=== PATIENT | female | born 1950 | race African-American/Black ===

== ENCOUNTER 2019-06-04 10:41 | Inpatient (IN) | payer BC, OTHER ==
[~2019-06-04] VITALS: Ht 162.6 cm; Wt 49.9 kg
--- NOTE | 2019-06-04 11:05 | NUR ---
PT CAME IN FOR MEDICAL CLEARANCE ACCOPANIED BY SINGLE RESOURCE BOSS Patient is AOx4, speaking in complete sentences, speech is clear. Patient is able to follow /comprehend directions. Gait is stable. No cardiovascular distress noted. Rate and rhythm are regular. No CP. No respiratory distress noted. Respirations even & unlabored with symmetrical chest rise. No adventitious sounds noted. Patient denies Fever/Chills. No recent travel.KNOWN HX OF HTN, upon arrival bp at 200/91mmhg, pt states she has not taken her BP meds (cozaar) this morning otherwise, presenting with no other related symptoms Pt c/o b/l knee pain for 1week, denies trauma to the site Addendum: 06/04/19 at 1141 by Binary ThumbIL Patient is AOx2(name and location), speaking in complete sentences, speech is clear. Patient is able to follow /comprehend directions. compliant and pleasant, pt stating different birthday states "channel cementer outsole machine will come and notify that i am born 03/10/1947" denies agitation, denies si/hi concerns at this time. Phas hx of paranoia and refuses to go home due to fear of being hurt by others Gait is stable. No cardiovascular distress noted. Rate and rhythm are regular. No CP. No respiratory distress noted. Respirations even & unlabored with symmetrical chest rise. No adventitious sounds noted. reoriented, pt easily redirected pt is calm, compliant, kept comfortable
--- NOTE | 2019-06-04 11:12 | NUR ---
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
[2019-06-04 11:50] LABS: BASOPHILS % (AUTO) 0.7 % (0.0-2.0); EOSINOPHILS % (AUTO) 0.4 % (0.0-7.0); HEMATOCRIT 33.4 % (31.2-41.9); HEMOGLOBIN 11.1 g/dL (10.9-14.3); LYMPHOCYTES # (AUTO) 0.8 K/uL (20.0-40.0); MEAN CORPUSCULAR HEMOGLOBIN 30.6 uug (24.7-32.8); MEAN CORPUSCULAR HGB CONC 33 g/dL (32.3-35.6); MEAN CORPUSCULAR VOLUME 91.9 fL (75.5-95.3); MONOCYTES # (AUTO) 0.3 K/uL (2.0-10.0); MONOCYTES % (AUTO) 6.3 % (0.0-11.0); NEUTROPHILS # (AUTO) 3.3 K/uL (1.8-8.9); NEUTROPHILS % (AUTO) 74.6 % (38.5-71.5); PLATELET COUNT (AUTO) 170 K/uL (179-408); RED BLOOD CELL COUNT(AUTO) 3.63 MIL/uL (3.63-4.92); WHITE BLOOD COUNT (AUTO) 4.5 K/uL (3.8-11.8)
[2019-06-04 12:02] LABS: CARBON DIOXIDE 30 mmol/L (21-32); CHLORIDE 107 mmol/L (98-107); CREATININE 1.4 mg/dL (0.6-1.3); GLUCOSE 78 mg/dL (74-106); POTASSIUM 3.4 mmol/L (3.5-5.1); UREA NITROGEN, BLOOD 32 mg/dL (7-18)
[2019-06-04 12:03] LABS: ALANINE AMINOTRANSFERASE 20 U/L (14-59); ALKALINE PHOSPHATASE 50 U/L (50-136); ASPARTATE AMINOTRANSFERASE 21 U/L (15-37); BILIRUBIN,DIRECT 0.1 mg/dL (0.0-0.2); BILIRUBIN,TOTAL 0.3 mg/dL (0.2-1.0); TOTAL PROTEIN, SERUM 7.7 g/dL (6.4-8.2)
[2019-06-04 12:10] LABS: ETHANOL < 3 MG/DL (0-0)
[2019-06-04 12:11] LABS: THYROID STIMULATING HORMONE 1.849 mIU/mL (0.358-3.740)
--- NOTE | 2019-06-04 12:22 | NUR ---
PT HOLD SIGNED BY HOUSEHOLD APPLIANCE MECHANIC: PT IS DANGER TO SELF W/ GD UNDER PSYCH: DR HUGHES CALL FOR BED DONE RM 327 (DEDE) [id number] AT BEDSIDE PT CURRENTLY DENIES SI/HI STILL WITH EPISODES OF CONFUSION KEPT CALM AND COMPLIANT
[2019-06-04 12:47] LABS: *BILIRUBIN,URIN NEGATIVE (NEGATIVE); *CLARITY,URINE SLIGHTLY CLOUDY (CLEAR); *COLOR,URINE LIGHT YELLOW (YELLOW); *KETONES,URINE NEGATIVE (NEGATIVE); *UROBILINOGEN,URINE 0.2 E.U./dl (NORMAL); LEUKOCYTE ESTERASE ,URINE 1+ (NEGATIVE); NITRITE, URINE NEGATIVE (NEGATIVE); UGLUCOSE NEGATIVE (NEGATIVE)
[2019-06-04 12:48] LABS: *BLOOD, URINE TRACE LYSED (NEGATIVE)
[2019-06-04 12:59] LABS: *AMPHETAMINE, URINE NEGATIVE (NEGATIVE); *BARBITURATE, URINE NEGATIVE (NEGATIVE); *CANNABINOID, URINE NEGATIVE (NEGATIVE); *COCCAINE, URINE NEGATIVE (NEGATIVE); *OPIATE, URINE NEGATIVE (NEGATIVE); *PHENCYCLIDINE SCREEN,URINE NEGATIVE (NEGATIVE)
[2019-06-04 13:01] LABS: BACTERIA,URINE MANY /HPF (NONE SEEN); SQUAMOUS EPITHELIAL CELL,UR MANY /HPF (NONE SEEN); URINE AMORPHOUS URATE MODERATE /HPF; WBC,URINE 80-100 /HPF (0-3)
[2019-06-04 13:02] LABS: MUCUS,URINE MANY /LPF (0-FEW)
--- NOTE | 2019-06-04 13:14 | NUR ---
DR DAMIAN (INSURANCE) ON THE PHONE WITH DR OMALLEY: PER INSURANCE COVERAGE, PT IS NOW PENDING FOR TRANSFER TO INSURANCE PREFERENCE WAITING CALL BACK
[2019-06-04] MEDS ORDERED: CEphaleXIN 500 MG CAPSULE PO ONE (13:30)
[2019-06-04] MEDS ORDERED: CEphaleXIN 500 MG CAPSULE ONE ×2 (13:34→22:42)
--- NOTE | 2019-06-04 13:49 | NUR ---
RAQUEL (LAYTON, CALL BACK AT [phone])ON THE PHONE FOR UPDATE: PENDING CONFIRMATION FROM FLORECITA (EXTRUSION DIE TEMPLATE [email or web address]) PENDING REFERRAL TO OTHER INPATIENT MHU FACILITIES AWAITING CALL BACK
--- NOTE | 2019-06-04 14:34 | NUR ---
[facility] ON THE PHONE DAVID QUESADA ([phone]) RECEIVED HAND OFF AND SBAR PT STABLE FOR TRANSFER DX: PSYCHOSIS/ AMS UNDER DR HUGHES (PSYCHE) +[phone] HOLD (GD AND DANGER TO SELF) PARANOIA WITH EPISODES OF CONFUSION
--- NOTE | 2019-06-04 15:09 | NUR ---
AUTHORIZATION RECEIVED FR INSURANCE TO ADMIT. HAND OFF AND SBAR GIVEN TO MELISSA QUESADA PT TO ADMIT DEDE DX: PSYCHOSIS UNDER DR HUGHES(PSYCHE) RA AMBULATORY DENIES PAIN DENIES SI/HI 1ON1 SITTER AT BEDSIDE
--- NOTE | 2019-06-04 16:00 | NUR ---
Pt transported via nichole acc by yanna BHAKTA
[2019-06-04] MEDS ORDERED: POTASSIUM CHLORIDE 20 MEQ TAB.PRT.SR PO ONE (18:45)
[2019-06-04] MEDS: LOSARTAN POTASSIUM 50 MG TABLET PO SCH (18:45)
--- NOTE | 2019-06-04 19:30 | NUR ---
Received report from day shift. Pt. resting comfortably in bed. Patient is on one to one observation with sitter at bedside. Patient is calm and cooperative. AxOX2/3 confused, follows commands and has clear speech. Denies Si/Hi. Patient denies any pain, no signs and symptoms of discomfort or distress, no SOB. Patient has steady gait and ambulates to the bathroom independently.Will continue to monitor.
--- NOTE | 2019-06-04 19:54 | NUR ---
Pt. resting comfortably in bed. sitter at bedside. pt. denies pain / discomfort. pt. denies sob/ difficulty breathing. Skin assessed no skin issues. pt. is refusing photos. Dr. Khan called orders of ambien 5 mg PRN QHS for sleep and ativan 1 mg PRN Q6HRS for agitation. Dr. Landaverde is putting in orders. Completed geovanna psych admission paperwork in binder. Endorsed to PM shift computer geropsych assessment. Endorsed elevated BP and PRN hydralazine available. Will bring down medication to pharmacy
[2019-06-04 20:00] VITALS: BP 168/76
[2019-06-04] MEDS: CEphaleXIN 500 MG CAPSULE PO SCH (22:00)
[2019-06-04] MEDS ORDERED: POTASSIUM CHLORIDE 20 MEQ TAB.PRT.SR ONE (22:42)
[2019-06-04] MEDS ORDERED: LOSARTAN POTASSIUM 50 MG TABLET ONE (22:44)
--- NOTE | 2019-06-04 23:30 | NUR ---
Patient is asleep and I woke her up to take her medication. Patient refused to take medication at this time and stated " wants to take the medication in the morning, she is trying to sleep more."
[2019-06-05] MEDS: CEphaleXIN 500 MG CAPSULE PO SCH ×3 (06:00→22:40)
--- NOTE | 2019-06-05 06:26 | NUR ---
Shift End Report: Slept fairly. No complaint of pain presented. Been refusing medications despite explaining the risk and benefits. Remain on 1:1 sitter for safety. No significant event reported. All needs attended and met. Continue care as planned.
[2019-06-05] MEDS: LOSARTAN POTASSIUM 50 MG TABLET PO SCH ×2 (06:45→18:45)
--- NOTE | 2019-06-05 06:47 | NUR ---
End of shift report. No signs of distress. patient slept 6 hours. Patient refused to take morning vitals and patient states " they already took my vitals, I already took my medication last night, they keep giving and giving me medication. Patient is not compliant and refuses to take her medication. Patient states that "everyone is so loud and they keep saying bad things about me, its making me feel bad , but god is watching." Patient states she will take her medication in the morning. Will endorse report to day shift.
--- NOTE | 2019-06-05 07:47 | NUR ---
GPS: RECEIVED PATIENT AOX1-2, PATIENT WALKING IN THE HALLWAY WITH THE SITTER, PATIENT ATTEMPTED TO USE THE ELEVATOR, CALLED ATTENTION OF THE PATIENT AND REDIRECT HER TO GO BACK IN HER ROOM, PATIENT REMINDED OF HER 5150 HOLD AND ACCOMPANIED HER BACK TO HER ROOM, PATIENT EASILY IRRITABLE, REFUSING MEDICATIONS , HOWEVER WOULD CALM DOWN IN HER ROOM,
[2019-06-05] MEDS ORDERED: Medication Not On Formulary EA (Multivitamins (Multivitamin) 1 TAB) PO SCH (09:00)
[2019-06-05 09:11] VITALS: BP 168/68
[2019-06-05] MEDS: risperiDONE 1 MG TABLET PO SCH ×2 (09:23→17:13)
[2019-06-05] MEDS: MULTIVITAMINS,THERAPEUTIC TABLET PO SCH (09:23)
--- NOTE | 2019-06-05 11:17 | NUR ---
08:40 Dr. Khan requested more information on the patient because she did not want to give him any information or any personal injury specialist due to her paranoia. No helpful information was in her chart to help locate a family member. 09:30 Called both number on her facesheet and the number was a wrong number. No answer on 10:21 The patient provided Bonifacio with a phone number for her son. This neon molder called the number and confirmed it is her son, John Wagoner. He was aware of the location of his mother because there is a tracker on her cell phone but was very thankful for the call. He provided these information: Medical History: She does have a knee problem and was suggested by her doctor to get surgery but she never followed up. She doesn't have any surgical history but she does have high blood pressure which she takes medication for. She also has borderline diabetes and her vision is poor at night due to cataract. Psychiatric History: The patient was never diagnosed with Alzheimer's but her mother from Alzheimer's and her father suffered from it as well but her son is not sure if he was formally diagnosed with it. He noticed that the patient mentally declined about a year ago after being laid off at work. Social History: The patient lives alone [[address] [place] [id number]], independent with her ADLs and uses a cane when she ambulates but at times forgets to use it. She was born and raised in [facility]. She was never and was from her boyfriend [children's father] for a long time. She has a daugther in [place] and her only local personal injury specialist is her son, John. 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 According to her son, BERNADINE was called and somewhat involved with the patient 20-50 times due to her paranoia. Advanced Directives: She is Full Code and does not have any DPOAHC nor a POLST. Discharge Plan: Her son would like for her to return back home once psychiatrically cleared. 11:[address] Khan on the information 11:[address] Babb on the infomration 11:12 Updated Anayeli Story on the information
--- NOTE | 2019-06-05 14:31 | NUR ---
GPS: patient remains calm in her room, denies SI and HI,
[2019-06-05 15:14] VITALS: BP 114/50
--- NOTE | 2019-06-05 17:10 | NUR ---
GPS: PATIENT STARTED TO GET CONFUSED , PATIENT VERBALIZES THAT HER SON IS IN THE OTHER ROOM, TRIED TO REDIRECT PATIENT AND EXPLAINED THAT SHES IN THE HOSPITAL, CALLED PATIENT SON AND HAVE HER TALK ON THE PHONE. GAVE PRN MEDICATION , PATIENT HESITANT TO TAKE MEDICATION, PATIENT CONFUSED AND WANTED TO GO HOME WILL CONTINUE MONITOR
[2019-06-05] MEDS: LORAZEPAM 1 MG TABLET PO PRN (17:15)
--- NOTE | 2019-06-05 17:39 | NUR ---
CALLED AND SPOKE WITH , ORDERS MADE AND CARRIED OUT
[2019-06-05] MEDS ORDERED: LORAZEPAM 2 MG/1 ML VIAL IM ONE ×2 (17:45→22:15)
[2019-06-05] MEDS ORDERED: OLANZAPINE 10 MG VIAL IM ONE ×2 (17:45→22:15)
[2019-06-05 18:49] VITALS: BP 155/79
[2019-06-05 20:00] VITALS: BP 159/64
--- NOTE | 2019-06-05 22:06 | NUR ---
PATIENT HAS S/S OF COMBATIVE BEHAVIOR, ANXIETY, AND AGITATION. DR. HUGHES ORDERED ZYPREXA 10 MG IM ONE TIME AND ATIVAN 1 MG IM ONE TIME.
--- NOTE | 2019-06-05 22:45 | NUR ---
administered ativan 1mg. patient tolerated well. s/s of anxiety and agitation decreased. zyprexa not administered. will continue to monitor.
[2019-06-06] MEDS: LOSARTAN POTASSIUM 50 MG TABLET PO SCH ×2 (05:52→17:45)
[2019-06-06] MEDS: CEphaleXIN 500 MG CAPSULE PO SCH ×3 (05:52→22:14)
--- NOTE | 2019-06-06 05:54 | NUR ---
coral solano np contacted for patient bp of 255/103. orders to give morning losartan. administered and will monitor.
[2019-06-06 06:10] VITALS: BP 274/100
[2019-06-06 07:30] VITALS: BP 256/112
--- NOTE | 2019-06-06 08:00 | NUR ---
RECEIVED REPORT FROM EVANGELINA OTT . PATIENT IS ASLEEP IN BED. MADE AWARE THE PATIENT BP IS HIGH 238/100.
--- NOTE | 2019-06-06 08:07 | NUR ---
DR. HERNANDEZ AWARE OF PATIENT BP 238/100. ORDER RECEIVED FOR CLONIDINE 0.2 MG PO ONE TIME. WILL ENDORSE TO KAREEM TO ADMINISTER AND FOLLOW UP.
[2019-06-06] MEDS ORDERED: CLONIDINE HCL 0.1 MG TABLET PO ONE (08:15)
--- NOTE | 2019-06-06 08:20 | NUR ---
PATIENT IS AGITATED, RESTLESS, AND COMBATIVE. I TOLD HER THAT HER BLOOD PRESSURE IS VERY HIGH AND THAT SHE NEEDS TO TAKE HER BLOOD PRESSURE MEDICATION. RECEIVED ORDER FOR CLONIDINE 0.2 MG PO X1. CRUSHED MEDICATION AND PATIENT TOOK MEDICATION TOLERABLE WITH PUDDING. ENDORSED TISHA WITH CHANGE OF SHIFT REPORT.
--- NOTE | 2019-06-06 08:30 | NUR ---
A call was received from Janelle Moctezuma the social work case manager from [facility] who stated that she has not received any clinical updates. A verbal clinical update was provided. Per Janelle: tracking number:[id number], P:[phone] F:[phone].
[2019-06-06] MEDS: MULTIVITAMINS,THERAPEUTIC TABLET PO SCH (09:18)
[2019-06-06] MEDS: risperiDONE 1 MG TABLET PO SCH ×2 (09:18→16:23)
--- NOTE | 2019-06-06 10:00 | NUR ---
Received pt in chair, A/OX1, confused and anxious. Pt. able to make simple needs known. In no acute distress. Pt. non-compliant with medications. Attending aware of elevated BP, will continue to monitor accordingly and medicate PRN. Pt. received PRN clonidine for elevated BP. On 1:1 sitter for safety and impulsiveness, pt. paranoid with episodes of hallucination. FISH ICER assisted pt. with ADLs and feeding, noted with poor PO intake in AM. No new skin condition, pt. skin intact. Safety measures in place. Will continue to monitor accordingly for changes.
--- NOTE | 2019-06-06 14:00 | NUR ---
Attempted to touchbase with Dr. Floyd per Dr. Khan order. Called MD but was unsuccessful and did not return call back. Attending BANKRUPTCY ATTORNEY Joaquín informed that attempt to call Neurologist was unsuccessful at this time.
[2019-06-06] MEDS: hydrALAZINE HCL 25 MG TABLET PO PRN (15:37)
--- NOTE | 2019-06-06 15:52 | NUR ---
Social Work Note Attempted to speak to patient but she had just received IM medication for agitation and was sedated. Dr Khan placed patient on a 5250 today. The [address] to the Court at fax: [phone] after speaking to Babita Jenkins, Court Superintendent [employer]. Will await notification of court hearing date and time.
[2019-06-06 16:05] VITALS: BP 211/104
[2019-06-06 17:06] VITALS: BP 142/78
--- NOTE | 2019-06-06 18:34 | NUR ---
EOS NOTE: No significant acute changes during this shift. All due medications administered as ordered. Blood pressure decrease in the 140s at dinner time. No new skin issues. Kept pt. clean and dry. Remain on 1:1 sitter due to agitation and restlessness. Placed call to son to allow pt. to speak with responsible constitution party. All pt. needs attended and met promptly. Safety measures in place. Call light and all frequently used items within pt. reach. Will endorse to oncoming shift accordingly.
[2019-06-06 20:00] VITALS: BP 119/66
--- NOTE | 2019-06-06 22:57 | NUR ---
RECEIVED PATIENT ON GERICHAIR, WITH INTERMITTENT SLEEP AND RESTLESSNESS. NO COMPLAINTS OF PAIN AT THIS TIME. NO FACIAL GRIMACING OBSERVED. RECEIVED DUE MEDICATIONS, TOLERATED WELL. KEPT PATIENT WARM, DRY, AND COMFORTABLE. FALL AND SAFETY PRECAUTIONS OBSERVED. PATIENT REMAINS ON 1:1 MONITORING. ALL NEEDS ATTENDED.
[2019-06-07 04:00] VITALS: BP 126/72
--- NOTE | 2019-06-07 06:00 | NUR ---
PATIENT IN BED, ASLEEP BUT EASILY AROUSABLE. REMAINS ON 1:1 MONITORING. FALL AND SAFETY PRECAUTIONS OBSERVED. VITAL SIGNS NOTED WITHIN NORMAL LIMITS THROUGHOUT SHIFT. NO EPISODES OF AGGRESSIVE BEHAVIOR OBSERVED. PATIENT WAS PLEASANT THROUGHOUT SHIFT. PATIENT KEPT WARM, DRY, CLEAN, AND COMFORTABLE. ALL NEEDS ATTENDED AND ANTICIPATED.
[2019-06-07] MEDS: CEphaleXIN 500 MG CAPSULE PO SCH ×3 (06:41→21:42)
[2019-06-07] MEDS: LOSARTAN POTASSIUM 50 MG TABLET PO SCH ×2 (06:43→17:46)
[2019-06-07 07:30] VITALS: BP 150/60
[2019-06-07] MEDS: risperiDONE 1 MG TABLET PO SCH ×2 (08:10→16:59)
[2019-06-07] MEDS: MULTIVITAMINS,THERAPEUTIC TABLET PO SCH (08:10)
[2019-06-07] MEDS: LORAZEPAM 1 MG TABLET PO PRN ×2 (10:50→16:58)
--- NOTE | 2019-06-07 15:17 | NUR ---
The patient's clinical inquiry: clinical notes for June 05, CXR results and lab and med list faxed to [facility] F:[phone], Tracking number: [id number].
[2019-06-07 16:00] VITALS: BP 125/58
--- NOTE | 2019-06-07 17:22 | NUR ---
pt is agitated ativan 1mg po given per md orders
[2019-06-07] MEDS: ZOLPIDEM 5 MG TABLET PO PRN (21:42)
[2019-06-08] VITALS: BP 172/59
[2019-06-08 04:00] VITALS: BP 172/59
[2019-06-08] MEDS: CEphaleXIN 500 MG CAPSULE PO SCH ×3 (05:15→21:02)
[2019-06-08] MEDS: LOSARTAN POTASSIUM 50 MG TABLET PO SCH ×2 (05:15→18:06)
--- NOTE | 2019-06-08 05:29 | NUR ---
asleep,very difficult to wake up. wants to sleep more.
--- NOTE | 2019-06-08 06:46 | NUR ---
slept 6 hours.
[2019-06-08 07:30] VITALS: BP 133/82
[2019-06-08] MEDS: risperiDONE 1 MG TABLET PO SCH ×2 (08:44→16:55)
[2019-06-08] MEDS: MULTIVITAMINS,THERAPEUTIC TABLET PO SCH (08:44)
--- NOTE | 2019-06-08 11:44 | NUR ---
Received patient this am up in faviola chair. Awake, but confused and forgetful. VS are stable, ate breakfast and has been compliant with medications so far. Patient needs frequent reorientation to situation and environment. Also noted to be combative at times. No acute behavioral issues or distress at this time. Patient sleeping on and off this am. Monitoring for safety.
[2019-06-08] MEDS: LORAZEPAM 1 MG TABLET PO PRN (15:14)
--- NOTE | 2019-06-08 15:24 | NUR ---
Patient getting very anxious as the day progresses. Paranoid thoughts of " Nobody likes me, and people are hurting me causing me bruises ". No bruises are noted in the places the patient is pointing to on the legs. Reassurance given and then ambulated patient in the hallway. Patient medicated for anxiety. Continuing to orient patient to situation and monitor for safety. Also monitoring for behavior escalation. No acute distress noted at this time.
[2019-06-08 16:00] VITALS: BP 155/65
--- NOTE | 2019-06-08 17:51 | NUR ---
Patient trying to climb out of chair. Very combative and tried to bite the nurse. Patient also refusing to take medications at this time. Very argumentative and difficult to redirect or reorient to situation. Monitoring patient closely for safety to prevent patient from injury. Continuing to have reality based conversations whenever possible and provide a calm environment. Patient also banging and yelling on table. Monitoring for behavioral escalation. Patient is confused with some hallucinations, asking for people who are not there and hyperverbal.
[2019-06-08 20:00] VITALS: BP 149/57
[2019-06-08] MEDS: ZOLPIDEM 5 MG TABLET PO PRN (20:35)
[2019-06-09] MEDS: CEphaleXIN 500 MG CAPSULE PO SCH ×3 (06:15→21:37)
[2019-06-09] MEDS: LOSARTAN POTASSIUM 50 MG TABLET PO SCH ×2 (06:45→18:21)
--- NOTE | 2019-06-09 06:57 | NUR ---
Received Pt in afviola chair with 1:1 sitter present. A+Ox1, pt is disoriented, disorganized and confused. Pt is restless and anxious, attempting to slide out from under the chair despite frequent directions for safety and fall prevention. Pt has an unsteady, weak gait, requiring assistance from staff, as she refuses to use a wheelchair or FWW. Ambien 5mg administered with good effect, as Pt is now resting in bed comfortably. Denies pain, VS stable. Awoke this morning angry and irritable, refused VS for Losartan administration, Pt educated regarding risks and benefits. Slept 8.5 hours.
[2019-06-09 07:30] VITALS: BP 181/78
[2019-06-09] MEDS: LORAZEPAM 1 MG TABLET PO PRN ×3 (07:42→21:17)
--- NOTE | 2019-06-09 07:43 | NUR ---
received patient AOx1, patient is confused, saying that she working with the kitchen , patient paranoid, prn medication given as ordered
[2019-06-09] MEDS: MULTIVITAMINS,THERAPEUTIC TABLET PO SCH (08:01)
[2019-06-09] MEDS: risperiDONE 1 MG TABLET PO SCH ×2 (08:01→17:00)
--- NOTE | 2019-06-09 13:54 | NUR ---
PATIENT CONTINOUSLY GETTING CONFUSED, PRN MEDS WAS GIVEN , PATIENT NEEDS REDIRECTION , SHOUT AT THE SITTER, WILL CONTINUE MONITOR
[2019-06-09] MEDS ORDERED: OLANZAPINE 10 MG VIAL IM ONE (14:30)
[2019-06-09] MEDS ORDERED: LORAZEPAM 2 MG/1 ML VIAL IM ONE (14:30)
--- NOTE | 2019-06-09 14:56 | NUR ---
patient continously screaming and throwing her pillows and linen inn her room, unable to redirect at this time, oral prn patient still continue to restless and confused, called and spoke with Dr. Sheehan, PRN IM medication was given as ordered, patient tolerated the procedure, patient monitored and with 1:1 sitter, will continue monitor
[2019-06-09 19:49] VITALS: BP 146/73
[2019-06-10 06:30] VITALS: BP 158/73
[2019-06-10] MEDS: LOSARTAN POTASSIUM 50 MG TABLET PO SCH ×2 (06:45→18:45)
[2019-06-10 07:30] VITALS: BP 142/63
--- NOTE | 2019-06-10 07:33 | NUR ---
GPS: patient awake with 1:1 sitter for safety, went to toilet, denies any pain, in no distress at this time, will continue monitor
[2019-06-10] MEDS: LORAZEPAM 1 MG TABLET PO PRN ×2 (08:33→15:24)
[2019-06-10] MEDS: MULTIVITAMINS,THERAPEUTIC TABLET PO SCH (08:33)
[2019-06-10] MEDS: risperiDONE 1 MG TABLET PO SCH ×5 (08:33→16:36)
--- NOTE | 2019-06-10 10:47 | NUR ---
Social Work Note/PC Hearing Notification: sail lay out worker contacted patient's son John, ([phone]) and notified patients probable cause of hearing today. This press writer left a voicemail.
--- NOTE | 2019-06-10 11:21 | NUR ---
UR Note: Janelle Moctezuma the case fitter from [facility] who stated that she hadnt received any clinicals regarding the patient. Jeannette contact for any updates, or placement for the patient P:[phone] F:[phone]. Tracking number [id number].
[2019-06-10] MEDS: ASPIRIN EC 81 MG TABLET.DR PO SCH (12:26)
--- NOTE | 2019-06-10 14:42 | NUR ---
Social Work Individual Therapy: vegetable worker met with patient for individual therapy. Patient presents with paranoid thoughts/delusional thought content. Patient was able to have a conversation with this automobile and property underwriter, however; patient was unable to have a meaningful conversation. Patient is hyperverbal. This automobile and property underwriter will follow up with patient.
--- NOTE | 2019-06-10 14:43 | NUR ---
Social Work Initial Discharge Note: Patient will return back home and patient's son John ([phone]) is involved in patient's care.
--- NOTE | 2019-06-10 14:46 | NUR ---
Social Work Firearms Report: Tube Bending Machine Operator completed and submitted a [employer] firearms report for 5250 grave disability certification. A copy of report has been placed in patient chart.
[2019-06-10 18:33] VITALS: BP 164/67
[2019-06-10 20:00] VITALS: BP 133/62
[2019-06-10] MEDS: ZOLPIDEM 5 MG TABLET PO PRN (20:30)
[2019-06-10] MEDS: ATORVASTATIN 10 MG TABLET PO SCH (20:30)
[2019-06-11] MEDS: LORAZEPAM 1 MG TABLET PO PRN ×2 (07:25→15:23)
[2019-06-11 07:30] VITALS: BP 129/54
[2019-06-11] MEDS: ASPIRIN EC 81 MG TABLET.DR PO SCH (08:18)
[2019-06-11] MEDS: hydrALAZINE HCL 25 MG TABLET PO PRN (08:19)
[2019-06-11] MEDS: LOSARTAN POTASSIUM 50 MG TABLET PO SCH ×2 (08:21→18:18)
[2019-06-11] MEDS: risperiDONE 1 MG TABLET PO SCH ×3 (08:21→17:15)
[2019-06-11] MEDS: MULTIVITAMINS,THERAPEUTIC TABLET PO SCH (08:21)
[2019-06-11 08:24] LABS: BASOPHILS % (AUTO) 0.5 % (0.0-2.0); EOSINOPHILS # (AUTO) 0.1 K/uL (0.0-0.7); EOSINOPHILS % (AUTO) 1.8 % (0.0-7.0); HEMATOCRIT 32.5 % (31.2-41.9); HEMOGLOBIN 10.9 g/dL (10.9-14.3); LYMPHOCYTES # (AUTO) 0.7 K/uL (20.0-40.0); LYMPHOCYTES % (AUTO) 17.4 % (20.5-51.5); MEAN CORPUSCULAR HGB CONC 34 g/dL (32.3-35.6); MEAN CORPUSCULAR VOLUME 92.4 fL (75.5-95.3); MONOCYTES # (AUTO) 0.3 K/uL (2.0-10.0); MONOCYTES % (AUTO) 8.1 % (0.0-11.0); NEUTROPHILS # (AUTO) 2.9 K/uL (1.8-8.9); NEUTROPHILS % (AUTO) 72.2 % (38.5-71.5); PLATELET COUNT (AUTO) 149 K/uL (179-408); RED BLOOD CELL COUNT(AUTO) 3.52 MIL/uL (3.63-4.92)
[2019-06-11 08:30] LABS: CREATININE 1.5 mg/dL (0.6-1.3); MAGNESIUM 2.6 mg/dL (1.8-2.4); PHOSPHOROUS 4.2 mg/dL (2.5-4.9); POTASSIUM 4.6 mmol/L (3.5-5.1)
--- NOTE | 2019-06-11 09:18 | NUR ---
UR Note: die out worker spoke with Janelle Moctezuma the business [facility] P:[phone] F:[phone]. Tracking number [id number]. This hand sign writer sent patient's recent [facility] & P psychiatric notes and progress notes.
[2019-06-11 16:00] VITALS: BP 105/54
[2019-06-11] MEDS: CLONIDINE HCL 0.1 MG TABLET PO PRN (17:21)
--- NOTE | 2019-06-11 19:03 | NUR ---
patient still noted with agitation, meds given as ordered, effective, partient denied any suicidal thoughts, continue to monitor
[2019-06-11] MEDS: ATORVASTATIN 10 MG TABLET PO SCH ×2 (21:00→22:53)
[2019-06-11] MEDS: TRAZODONE 50 MG TABLET PO SCH ×2 (21:00→22:53)
[2019-06-11 22:00] VITALS: BP 112/48
--- NOTE | 2019-06-11 23:30 | NUR ---
received to care, up in faviola chair, initially asleep. pleasant when approached. bedtime medications were given at 2252, when she awoke to go to the bathroom. she was then assisted to bed. as of 2329, she remains asleep. no dsitress noted. will continue to monitor closely.
--- NOTE | 2019-06-12 06:00 | NUR ---
slept 9.0 hours, total. no distress noted.
[2019-06-12] MEDS: LOSARTAN POTASSIUM 50 MG TABLET PO SCH ×2 (06:06→16:50)
[2019-06-12 08:00] VITALS: BP 135/55
[2019-06-12] MEDS: MULTIVITAMINS,THERAPEUTIC TABLET PO SCH (09:01)
[2019-06-12] MEDS: risperiDONE 1 MG TABLET PO SCH ×3 (09:01→16:49)
[2019-06-12] MEDS: ASPIRIN EC 81 MG TABLET.DR PO SCH (09:03)
--- NOTE | 2019-06-12 09:28 | NUR ---
Social Work UR Note: Janelle Moctezuma the rn field case manager from [facility]. This contract technical writer sent psychiatric notes and progress notes. Jeannette contact for any updates, or placement for the patient P:[phone] F:[phone]. Tracking number [id number].
--- NOTE | 2019-06-12 12:55 | NUR ---
1245 Patient out of the chair and walk very unsteady gait. Assist patient get back to the chair but became combative by hitting, scratching and tried to bend the hand of one staff. Called [facility] for help . Dr. Khan notified regarding patient uncontrolled behavior of the patient with orders. 1255 Emergency drugs ; Ativan 1mg im and Zyprexa 5 mg im administered. Will continue to monitor behavior.
[2019-06-12] MEDS ORDERED: LORAZEPAM 2 MG/1 ML VIAL IM ONE (13:00)
[2019-06-12] MEDS ORDERED: OLANZAPINE 10 MG VIAL IM ONE (13:00)
[2019-06-12 20:45] VITALS: BP 145/69
[2019-06-12] MEDS: ATORVASTATIN 10 MG TABLET PO SCH (21:00)
[2019-06-12] MEDS: TRAZODONE 50 MG TABLET PO SCH (21:05)
--- NOTE | 2019-06-12 22:00 | NUR ---
received to care, up in faviola chair, initially asleep. agitated, when approached. bedtime medications were given, with much encouragement. as of 2329, she remains awake, talking to self. will continue to monitor closely.
--- NOTE | 2019-06-12 23:30 | NUR ---
remains restless. PRN ambien was offered, but she refused, and threw the water, and became combative. she calmed down slightly. continued to refuse the ambien. was assisted with a shower, and to bed. she went to sleep, after a few minutes. no distress noted.
--- NOTE | 2019-06-13 00:10 | NUR ---
assited back to chair, after attempting to climb out of bed. remains aggressive and difficult to redirect.
[2019-06-13] MEDS: ZOLPIDEM 5 MG TABLET PO PRN (01:40)
[2019-06-13] MEDS: LOSARTAN POTASSIUM 50 MG TABLET PO SCH ×2 (06:36→16:42)
--- NOTE | 2019-06-13 06:47 | NUR ---
slept 2.75 hours total. remains verbally hostile. refused am cozaar. b/p is 137/65
[2019-06-13 07:30] VITALS: BP 152/57
[2019-06-13] MEDS: MULTIVITAMINS,THERAPEUTIC TABLET PO SCH (08:20)
[2019-06-13] MEDS: ASPIRIN EC 81 MG TABLET.DR PO SCH (08:20)
[2019-06-13] MEDS: risperiDONE 1 MG TABLET PO SCH (08:20)
--- NOTE | 2019-06-13 09:16 | NUR ---
Social Work UR Note: Janelle Moctezuma the case assistant from [facility]. This account underwriter sent psychiatric notes and progress notes. Jeannette contact for any updates, or placement for the patient P:[phone] F:[phone]. Tracking number [id number].
[2019-06-13] MEDS: QUETIAPINE FUMARATE 25 MG TABLET PO SCH ×2 (13:00→16:42)
--- NOTE | 2019-06-13 13:06 | NUR ---
Received patient this am up in chair. Awake and alert, but confused. Patient with auditory and visual hallucinations. Constantly having conversations with people that are not there. Continually trying to reorient patient to reality and have some reality based conversations. Patient easily becomes angry and irritable. Patient ambulated in the alvarez with a walker, but was difficult to redirect and at one point started to become combative. Monitoring patient for safety and behavior escalation. No acute distress noted at this time.
--- NOTE | 2019-06-13 13:37 | NUR ---
Patient refused to take afternoon Seroquel PO. Will continue to educate and encourage medication compliance.
[2019-06-13 16:13] VITALS: BP 146/63
--- NOTE | 2019-06-13 19:30 | NUR ---
RECEIVED PT AWAKE, ALERT AND ORIENTEDX1. PT FORGETFUL AND CONFUSED. PT IN NO ACUTE DISTRESS. PLEASANT WHEN APPROACHED. NO SIGNS OF AGITATION. WILL CONTINUE TO MONITOR.
[2019-06-13 20:30] VITALS: BP 100/55
[2019-06-13] MEDS: ATORVASTATIN 10 MG TABLET PO SCH (21:17)
[2019-06-13] MEDS: QUETIAPINE FUMARATE 100 MG TABLET PO SCH (21:18)
[2019-06-13] MEDS: LORAZEPAM 1 MG TABLET PO PRN (21:36)
[2019-06-14] MEDS: LOSARTAN POTASSIUM 50 MG TABLET PO SCH ×2 (06:01→18:01)
--- NOTE | 2019-06-14 06:35 | NUR ---
PT SLEPT 6.15 H. PT COOPERATIVE WITH CARE. PRESCRIBED MEDICATION GIVEN AND PT TOLERATED IT WELL. AT 2136H PT GIVEN ATIVAN BECAUSE OF RESTLESSNESS AND AGITATION. PT TOLERATED IT WELL. PT REFUSED HER COZAAR. PT IN NO ACUTE DISTRESS.SAFETY AND COMFORT PROVIDED. WILL ENDORSE TO INCOMING NURSE FOR CONTINUITY OF CARE.
[2019-06-14 07:55] VITALS: BP 178/79
[2019-06-14] MEDS: QUETIAPINE FUMARATE 25 MG TABLET PO SCH ×3 (08:56→16:53)
[2019-06-14] MEDS: ASPIRIN EC 81 MG TABLET.DR PO SCH (08:56)
[2019-06-14] MEDS: MULTIVITAMINS,THERAPEUTIC TABLET PO SCH (08:56)
[2019-06-14] MEDS: hydrALAZINE HCL 25 MG TABLET PO PRN (08:57)
--- NOTE | 2019-06-14 11:19 | NUR ---
Received patient this am trying to jump out of bed. Assisted patient to the bathroom and natalie care provided. This patient is very confused and is having visual hallucinations. Reorienting patient and attempting to have meaningful conversation. Anxiety noted. Patient in faviola chair at the nurses station for safety. Ambulated patient in alvarez x2. Gait unsteady, assistance needed. Monitoring for safety and escalation in behavior. No acute distress noted at this time. B/P was high this am , patient medicated with PRN.
--- NOTE | 2019-06-14 12:48 | NUR ---
A call was received from Janelle from [facility] who stated that the patient has been accepted to [facility] in [place] and needs a call back @ [phone] with a time frame of 25-30 minutes to accept. Spoke with Piper QUESADA and Emma who will call back Janelle.
--- NOTE | 2019-06-14 13:38 | NUR ---
Social Work Individual Therapy: salvage worker met with patient for individual therapy. Patient presents with paranoid thoughts/delusional thought content. Patient was able to have a conversation with this ghost writer. Patient is unable to have a meaningful conversation with this ghost writer. salvage worker will follow up.
[2019-06-14 16:58] VITALS: BP 127/54
[2019-06-14 20:18] VITALS: BP 152/68
[2019-06-14] MEDS: QUETIAPINE FUMARATE 100 MG TABLET PO SCH (20:19)
[2019-06-14] MEDS: ATORVASTATIN 10 MG TABLET PO SCH (20:19)
[2019-06-15] MEDS: LOSARTAN POTASSIUM 50 MG TABLET PO SCH ×2 (05:56→17:26)
--- NOTE | 2019-06-15 06:21 | NUR ---
Patient slept about a total of 5.0 hours last night.
[2019-06-15 07:30] VITALS: BP 184/88
[2019-06-15] MEDS: CLONIDINE HCL 0.1 MG TABLET PO PRN (09:04)
[2019-06-15] MEDS: ASPIRIN EC 81 MG TABLET.DR PO SCH (09:04)
[2019-06-15] MEDS: QUETIAPINE FUMARATE 25 MG TABLET PO SCH ×3 (09:05→16:36)
[2019-06-15] MEDS: MULTIVITAMINS,THERAPEUTIC TABLET PO SCH (09:05)
[2019-06-15 16:48] VITALS: BP 111/50
[2019-06-15] MEDS: ATORVASTATIN 10 MG TABLET PO SCH (20:21)
[2019-06-15] MEDS: QUETIAPINE FUMARATE 100 MG TABLET PO SCH (20:21)
[2019-06-16] MEDS: LOSARTAN POTASSIUM 50 MG TABLET PO SCH ×2 (05:50→18:44)
--- NOTE | 2019-06-16 06:20 | NUR ---
Patient slept about a total of 7.30 hours last night.
[2019-06-16 07:30] VITALS: BP 125/50
[2019-06-16] MEDS: ASPIRIN EC 81 MG TABLET.DR PO SCH (09:13)
[2019-06-16] MEDS: QUETIAPINE FUMARATE 25 MG TABLET PO SCH ×3 (09:14→17:22)
[2019-06-16] MEDS: MULTIVITAMINS,THERAPEUTIC TABLET PO SCH (09:14)
[2019-06-16 15:49] VITALS: BP 128/45
[2019-06-16] MEDS ORDERED: LORAZEPAM 2 MG/1 ML VIAL IM STA (19:33)
[2019-06-16] MEDS ORDERED: chlorproMAZINE 50 MG/2 ML AMPUL IM ONE (19:45)
[2019-06-16] MEDS ORDERED: chlorproMAZINE 50 MG/2 ML AMPUL ONE (20:01)
[2019-06-16] MEDS: ATORVASTATIN 10 MG TABLET PO SCH (21:00)
[2019-06-16 22:29] VITALS: BP 103/58
--- NOTE | 2019-06-16 23:00 | NUR ---
received to care, up in faviola chair, talking to self, appearing distracted by internal stimuli. verbally hostile when approached. intrusive with peers, sitting near her. difficult to redirect. refused all medications. she continued to escalate in her behavior. Dr Khan was paged. IM thorazine 50 mg / ativan 1 mg was given, per orders,at 2013. by 2129, she was much calmer. as of 2299, she appears to be asleep. no distress noted. will continue to monitor closely.
--- NOTE | 2019-06-17 06:00 | NUR ---
slept 6 hours, total. continues to sleep. no distress noted.
[2019-06-17 07:30] VITALS: BP 161/68
[2019-06-17 07:50] LABS: BASOPHILS % (AUTO) 0.5 % (0.0-2.0); EOSINOPHILS # (AUTO) 0.1 K/uL (0.0-0.7); HEMATOCRIT 28.1 % (31.2-41.9); HEMOGLOBIN 9.3 g/dL (10.9-14.3); LYMPHOCYTES # (AUTO) 0.7 K/uL (20.0-40.0); LYMPHOCYTES % (AUTO) 15.4 % (20.5-51.5); MEAN CORPUSCULAR HEMOGLOBIN 30.6 uug (24.7-32.8); MEAN CORPUSCULAR HGB CONC 33 g/dL (32.3-35.6); MEAN CORPUSCULAR VOLUME 92.5 fL (75.5-95.3); MONOCYTES # (AUTO) 0.5 K/uL (2.0-10.0); MONOCYTES % (AUTO) 9.7 % (0.0-11.0); NEUTROPHILS # (AUTO) 3.5 K/uL (1.8-8.9); NEUTROPHILS % (AUTO) 72.4 % (38.5-71.5); PLATELET COUNT (AUTO) 162 K/uL (179-408); RED BLOOD CELL COUNT(AUTO) 3.03 MIL/uL (3.63-4.92); WHITE BLOOD COUNT (AUTO) 4.8 K/uL (3.8-11.8)
[2019-06-17 07:58] LABS: CREATININE 2.4 mg/dL (0.6-1.3); PHOSPHOROUS 4.8 mg/dL (2.5-4.9); POTASSIUM 5.1 mmol/L (3.5-5.1)
--- NOTE | 2019-06-17 08:01 | NUR ---
Received patient asleep, no SOB, no c/o pain noted. safety and comfort provided. will continue to monitor.
[2019-06-17] MEDS: QUETIAPINE FUMARATE 25 MG TABLET PO SCH ×4 (08:45→17:07)
[2019-06-17] MEDS: ASPIRIN EC 81 MG TABLET.DR PO SCH (08:45)
[2019-06-17] MEDS: MULTIVITAMINS,THERAPEUTIC TABLET PO SCH (08:45)
[2019-06-17] MEDS ORDERED: LOSARTAN POTASSIUM 50 MG TABLET PO SCH (09:00)
[2019-06-17 15:13] VITALS: BP 126/56
--- NOTE | 2019-06-17 15:19 | NUR ---
Social Work Coordination of Care: garbage pick up worker spoke with patient's counseling case manager for insurance Janelle ([phone]) who stated that patient's SNF will accept her today due to bed issues. This typewriter operator automatic also gave auth number for [facility] a [id number]. This typewriter operator automatic gave this information to charge nurse.
--- NOTE | 2019-06-17 15:22 | NUR ---
Social Work Discharge Note: [place] [address]; ([phone]) via ambulance transportation at 7PM through [facility] (Auth number for transportation:[id number] provided by patient's protective services case worker Amanda; ([phone]). Patients elfego Lopez ([phone]) is aware and agreeable with discharge plan. Patients protective services case worker Janelle ([phone]) arranged patients discharge to a SNF, who stated that the facility is able to accept patient today. Patient is alert and oriented x1-2, and is not able to plan for self-care at this time, but is willing to accept care provided for her at the facility. Patient denies any suicidal or homicidal ideations. Patient is aware and agreeable with discharge plans. Patient will continue to follow-up with her (Psychiatrist) Dr. Valdez and [facility] (Dr. [place]) [place] [address]; ([phone]). Patient was provided with outpatient mental health resources to [facility] Line , and the National Suicide Prevention Lifeline . Patient will follow-up at the center. Patient presents with euthymic mood and congruent affect.
--- NOTE | 2019-06-17 15:24 | NUR ---
Social Work Family Contact: Patient's son John ([phone]) is aware and agreeable with discharge plan.
--- NOTE | 2019-06-17 18:04 | NUR ---
RECEIVED DISCHARGE OR TO SNF, VIA AMBULANCE WITH 2 EMT, DISCHARGE ORDER GIVEN . BELONGING ACCOUNTED FOR AND SIGNED. QUESTION AND CONCERNS ADDRESSED. NO SOB NOTED AND NO C/O PAIN
== END 2019-06-17 18:32 | DRG 885 ==
LOC: ER 10:41 → GPSOV3 15:20 → GPS 06-10 10:09
PROVIDERS: ADMIT Psychiatry & Neurology Psychiatry; ATTEND Internal Medicine
DX: F29 Unspecified psychosis not due to a substance or known physiological condition (principal); N17.0 Acute kidney failure with tubular necrosis; A81.00 Creutzfeldt-Jakob disease, unspecified; N39.0 Urinary tract infection, site not specified; E44.0 Moderate protein-calorie malnutrition; Z68.1 Body mass index [BMI] 19.9 or less, adult; F02.81 Dementia in other diseases classified elsewhere, unspecified severity, with behavioral disturbance; B96.20 Unspecified Escherichia coli [E. coli] as the cause of diseases classified elsewhere; E87.6 Hypokalemia; D69.6 Thrombocytopenia, unspecified; I10 Essential (primary) hypertension; M17.0 Bilateral primary osteoarthritis of knee; M19.90 Unspecified osteoarthritis, unspecified site; F20.0 Paranoid schizophrenia; G30.9 Alzheimer's disease, unspecified; Z87.440 Personal history of urinary (tract) infections; Z86.73 Personal history of transient ischemic attack (TIA), and cerebral infarction without residual deficits; H54.7 Unspecified visual loss
CPT/HCPCS: 36415; 70450; 71045; 80307; 83735; 84100; 84443; 85025; 85610; 85730; 87077; 87086; 93005; A4663; G0480; J2060; J2358; J3230